=== PATIENT | female | born 1980 | race Caucasian/White ===

== ENCOUNTER 2017-02-16 17:01 | Emergency (ER) | payer OTHER ==
[~2017-02-16] VITALS: Ht 162.6 cm; Wt 85.9 kg
[2017-02-16 17:14] VITALS: TEMP 36.9; Ht 162.6 cm; Wt 85.9 kg
[2017-02-16] MEDS ORDERED: KETOROLAC TROMETHAMINE 60 MG/2 ML VIAL IM STA (17:38)
[2017-02-16] MEDS ORDERED: SENN1TAB65 PO (17:56)
[2017-02-16] MEDS ORDERED: ADVIN50/60 INH (17:56)
[2017-02-16] MEDS ORDERED: AMB/10 PO (17:56)
[2017-02-16] MEDS ORDERED: EPP3/2 IM (17:56)
[2017-02-16] MEDS ORDERED: CLN200 PO (17:56)
[2017-02-16] MEDS ORDERED: HYOS1TAB PO (17:56)
[2017-02-16] MEDS ORDERED: ONDA8TAB12 PO (17:56)
[2017-02-16] MEDS ORDERED: CYCL10TA6 PO (17:56)
[2017-02-16] MEDS ORDERED: VNTHFA/IN INH (17:56)
[2017-02-16] MEDS ORDERED: FLUT50SP22 (17:56)
[2017-02-16] MEDS ORDERED: TRAM-10 PO (17:56)
[2017-02-16] MEDS ORDERED: RABE20TA5 PO (17:56)
[2017-02-16] MEDS ORDERED: GABA-113 PO (17:56)
--- NOTE | 2017-02-16 18:45 | DIAGNOSTIC IMAGING REPORT ---
LUMBAR SPINE 2 OR 3 VIEWS, THORACIC SPINE 3 VIEWS ROUTINE, CERVICAL SPINE 2 OR 3 VIEWS HISTORY: 36 years-old Female lower back pain acute back and neck pain without reported trauma COMPARISON: None available TECHNIQUE: 3 views of the lumbar spine, 3 views of the thoracic spine min 4 views of the cervical spine FINDINGS: CERVICAL: There is minimal anterior endplate wedging of approximately 20% involving the C7 vertebral body without retropulsion. Remaining vertebral bodies are well-maintained in height and alignment is satisfactory. No significant degenerative changes. Soft tissues are unremarkable. THORACIC: No acute fracture, subluxation or significant degenerative changes. Imaged lung lynne and soft tissues are unremarkable. LUMBAR: No acute fracture or subluxation. No compression deformity. Minimal multilevel endplate spurring. No significant intervertebral disc space narrowing. IMPRESSION: 1. Mild anterior endplate wedging of approximately 20% involves the C7 vertebral body without retropulsion suggesting age-indeterminate compression deformity. Correlate with clinical exam and patient history. 2. No acute bony abnormality of the thoracic or lumbar spine. The above report was generated using voice recognition software. It may contain grammatical, syntax or spelling errors. Electronically signed by: Ted Cueva M.D. 02/16/2017 6:43 PM Dictated Date/Time: 02/16/2017 6:37 PM
[2017-02-16] MEDS ORDERED: PRED50TA PO (19:24)
[2017-02-16 19:39] VITALS: BP 130/82; PULSE 100; O2SAT 98
--- NOTE | 2017-02-16 23:25 | EMERGENCY ROOM VISIT NOTE ---
History Report prepared by Hernandez: Ivone Pedro Under the Supervision of: Hanna SowO. First contact with patient: 17:19 Chief Complaint: NECK PAIN Stated Complaint: PAIN IN NECK/RT SHOULDER/LBP/LEG/ARM, LT HAND/ARM History of Present Illness The patient is a 36 year old female who presents to the Emergency Room with complaints of constant right-sided pain for the past 2 weeks. The patient states that she has had pain in her right neck, right shoulder, right back, and down into her right arm and right leg. This has been chronic for years but it has been worse over the past 2 weeks. She states that usually her pain is around a 1/10 in severity, but currently it is a 9/10. She was on prednisone for a week but is not currently taking any steroids. The patient recently moved to the area and has not set up and doctors here. Pt denies numbness, headache, change in vision, fevers, chest pain, shortness of breath, nausea, vomiting, diarrhea, pain with urination, and melena. Source of History: patient Onset: 2 weeks ago Position: other (right-sided) Symptom Intensity: 9/10 Timing: constant Associated Symptoms: + neck pain, + back pain, No fevers, No headache, No nausea, No vomiting, No melena, No diarrhea, No urinary symptoms, No numbness Review of Systems See HPI for pertinent positives & negatives. A total of 10 systems reviewed and were otherwise negative. Past Medical & Surgical Medical Problems: (1) Anxiety (2) Asthma (3) Bipolar disorder (4) Chronic fatigue (5) Depression (6) GERD (gastroesophageal reflux disease) (7) IBS (irritable bowel syndrome) (8) Insomnia (9) PTSD (post-traumatic stress disorder) Family History Diabetes mellitus Heart disease Hypertension Kidney disease Kidney stones Social History Smoking Status: Current Every Day Smoker Smokeless Tobacco Use: No Alcohol Use: occasionally Marital Status: single Housing Status: lives alone Occupation Status: unemployed Current/Historical Medications Scheduled Epinephrine (Epipen), 0.3 MG IM UD Fluticasone Prop/Salmeterol (Advair Diskus 500/50 60 Dose), 1 PUFF INH BID Fluticasone Propionate (Nasal) ([facility] Fluticasone Propriona), 1 SPRAY NA BID Gabapentin (Neurontin), 600 MG PO TID Hyoscyamine Sulfate (Levsin), 0.125 MG PO BID Prednisone (Prednisone), 50 MG PO DAILY Rabeprazole Sodium (Aciphex), 20 MG PO BID Sennosides-Docusate Sodium (Senna Plus), 1 TAB PO BID Sulindac (Sulindac), 200 MG PO BIDM Zolpidem Tartrate (Zolpidem Tartrate), 10 MG PO HS Scheduled PRN Albuterol Hfa (Ventolin Hfa), 2-4 PUFFS INH Q6H PRN for Shortness of Breath Cyclobenzaprine Hcl (Flexeril), 10 MG PO TID PRN for Muscle Spasms Ondansetron Hcl (Zofran), 8 MG PO BID PRN for PRN Tramadol (Ultram), 100 MG PO TID PRN for PRN Allergies Coded Allergies: Ciprofloxacin (Unverified Allergy, Severe, THROAT CLOSES/FACIAL SWELLING, 02/16/17) Metronidazole (Unverified Allergy, Severe, THROAT CLOSING/SWELLING OF FACIAL FEATURES, 02/16/17) Physical Exam Vital Signs Date Time Temp Pulse Resp B/P (MAP) Pulse Ox O2 Delivery O2 Flow Rate FiO2 02/16/17 19:39 100 18 130/82 98 02/16/17 18:07 90 17 106/75 99 02/16/17 17:14 36.9 124 18 121/79 97 Room Air Physical Exam GENERAL: Sitting up in bed, alert, well appearing, well nourished, no distress, non-toxic EYE EXAM: normal conjunctiva OROPHARYNX: no exudate, no erythema, lips, buccal mucosa, and tongue normal and mucous membranes are moist NECK: supple, no nuchal rigidity, no adenopathy, non-tender LUNGS: Clear to auscultation. Normal chest wall mechanics HEART: no murmurs, S1 normal and S2 normal ABDOMEN: abdomen soft, non-tender, normo-active bowel sounds, no masses, no rebound or guarding. BACK: Acute reproducible tenderness in the cervical perispinal region tracking down into lower thoracic region over into right trapezius down to right humerus. SKIN: no rashes and no bruising UPPER EXTREMITIES: upper extremities are grossly normal. Flexion/extension of shoulder/elbow/wrist and grasp 5/5 bilaterally. LOWER EXTREMITIES: No pitting edema. Flexion/extension of hip/knee/ankle/EHL 5/5 , gross sensation intact, patellar and Achilles reflexes intact NEURO EXAM: Normal sensorium, cranial nerves II-XII intact, Medical Decision & Procedures ER Provider Diagnostic Interpretation: Radiology results as stated below per my review and the radiologist's interpretation: LUMBAR SPINE 2 OR 3 VIEWS, THORACIC SPINE 3 VIEWS ROUTINE, CERVICAL SPINE 2 OR 3 VIEWS HISTORY: 36 years-old Female lower back pain acute back and neck pain without reported trauma COMPARISON: None available TECHNIQUE: 3 views of the lumbar spine, 3 views of the thoracic spine min 4 views of the cervical spine FINDINGS: CERVICAL: There is minimal anterior endplate wedging of approximately 20% involving the C7 vertebral body without retropulsion. Remaining vertebral bodies are well-maintained in height and alignment is satisfactory. No significant degenerative changes. Soft tissues are unremarkable. THORACIC: No acute fracture, subluxation or significant degenerative changes. Imaged lung lynne and soft tissues are unremarkable. LUMBAR: No acute fracture or subluxation. No compression deformity. Minimal multilevel endplate spurring. No significant intervertebral disc space narrowing. IMPRESSION: 1. Mild anterior endplate wedging of approximately 20% involves the C7 vertebral body without retropulsion suggesting age-indeterminate compression deformity. Correlate with clinical exam and patient history. 2. No acute bony abnormality of the thoracic or lumbar spine. The above report was generated using voice recognition software. It may contain grammatical, syntax or spelling errors. Electronically signed by: Ted Cueva M.D. 02/16/2017 6:43 PM Dictated Date/Time: 02/16/2017 6:37 PM LUMBAR SPINE 2 OR 3 VIEWS, THORACIC SPINE 3 VIEWS ROUTINE, CERVICAL SPINE 2 OR 3 VIEWS HISTORY: 36 years-old Female lower back pain acute back and neck pain without reported trauma COMPARISON: None available TECHNIQUE: 3 views of the lumbar spine, 3 views of the thoracic spine min 4 views of the cervical spine FINDINGS: CERVICAL: There is minimal anterior endplate wedging of approximately 20% involving the C7 vertebral body without retropulsion. Remaining vertebral bodies are well-maintained in height and alignment is satisfactory. No significant degenerative changes. Soft tissues are unremarkable. THORACIC: No acute fracture, subluxation or significant degenerative changes. Imaged lung lynne and soft tissues are unremarkable. LUMBAR: No acute fracture or subluxation. No compression deformity. Minimal multilevel endplate spurring. No significant intervertebral disc space narrowing. IMPRESSION: 1. Mild anterior endplate wedging of approximately 20% involves the C7 vertebral body without retropulsion suggesting age-indeterminate compression deformity. Correlate with clinical exam and patient history. 2. No acute bony abnormality of the thoracic or lumbar spine. The above report was generated using voice recognition software. It may contain grammatical, syntax or spelling errors. Electronically signed by: Ted Cueva M.D. 02/16/2017 6:43 PM Dictated Date/Time: 02/16/2017 6:37 PM LUMBAR SPINE 2 OR 3 VIEWS, THORACIC SPINE 3 VIEWS ROUTINE, CERVICAL SPINE 2 OR 3 VIEWS HISTORY: 36 years-old Female lower back pain acute back and neck pain without reported trauma COMPARISON: None available TECHNIQUE: 3 views of the lumbar spine, 3 views of the thoracic spine min 4 views of the cervical spine FINDINGS: CERVICAL: There is minimal anterior endplate wedging of approximately 20% involving the C7 vertebral body without retropulsion. Remaining vertebral bodies are well-maintained in height and alignment is satisfactory. No significant degenerative changes. Soft tissues are unremarkable. THORACIC: No acute fracture, subluxation or significant degenerative changes. Imaged lung lynne and soft tissues are unremarkable. LUMBAR: No acute fracture or subluxation. No compression deformity. Minimal multilevel endplate spurring. No significant intervertebral disc space narrowing. IMPRESSION: 1. Mild anterior endplate wedging of approximately 20% involves the C7 vertebral body without retropulsion suggesting age-indeterminate compression deformity. Correlate with clinical exam and patient history. 2. No acute bony abnormality of the thoracic or lumbar spine. The above report was generated using voice recognition software. It may contain grammatical, syntax or spelling errors. Electronically signed by: Ted Cueva M.D. 02/16/2017 6:43 PM Dictated Date/Time: 02/16/2017 6:37 PM Medications Administered Medications (Trade) Dose Ordered Sig/Anselmo Route Start Time Stop Time Status Last Admin Dose Admin Ketorolac Tromethamine (Toradol Inj) 60 mg NOW STAT IM 02/16/17 17:38 02/16/17 17:39 DC 02/16/17 18:03 60 MG Prednisone (PredniSONE TAB) 60 mg NOW STAT PO 02/16/17 19:18 02/16/17 19:19 DC 02/16/17 19:35 60 MG ED Course ED COURSE: Vital signs were reviewed and showed tachycardic. The patients medical record was reviewed The above diagnostic studies were performed and reviewed. ED treatments and interventions as stated above. 1719: The patient was evaluated in room A4B. A complete history and physical examination was performed. 1738: Toradol 60 mg IM 1908: Upon reevaluation, the patient is resting comfortably. I discussed my findings with the patient and she understands and agrees with the treatment plan. Based on the patients age, coexisting illnesses, exam and lab findings the decision to treat as an outpatient was made. The patient remained stable while under my care. The patient appeared well at the time of discharge. 1918: Prednisone 60 mg PO Medical Decision Differential diagnoses includes but is not limited to lumbar radiculopathy, muscle strain, facture, cauda equina, mass, and disc herniation. Patient is a 36-year-old female who presents to ER for right sided pain. She notes this pain has been present for the past 5-7 years. She has an old lower cervical compression fracture. Pain is in her right cervical paraspinal region to the right mid thoracic and a little bit in her lower lumbar rating down to that her right leg. Patient is completely neurologically intact. No focal deficit. X-rays of the cervical thoracic and lumbar regions show no acute pathology. Patient was given steroids. She was given IM Toradol. She was updated bedside. She was discharged to follow-up with PCP. Referral given to pain management. Discussed with Pt concerning signs and symptoms to watch out for. Pt was instructed to follow up with their PCP and discussed with the patient their option to return to the ED at anytime for persistent or worsening symptoms. The appropriate anticipatory guidance and out-patient management, including indications for return to the emergency department, were explained at length to the patient and understood. Medication Reconcilliation Current Medication List: was personally reviewed by me Blood Pressure Screening Patient's blood pressure: Normal blood pressure Impression Primary Impression: Neck pain Additional Impression: Back pain Scribe Attestation The scribe's documentation has been prepared under my direction and personally reviewed by me in its entirety. I confirm that the note above accurately reflects all work, treatment, procedures, and medical decision making performed by me. Departure Information Dispostion Home / Self-Care Prescriptions Prednisone (PREDNISONE) 50 Mg Tab 50 MG PO DAILY for 4 Days, TAB Prov: Ludin Saab, DO 02/16/17 Referrals Kun Pereira M.D. (PCP) Adam Burks M.D. Forms HOME CARE DOCUMENTATION FORM, IMPORTANT VISIT INFORMATION, WORK / SCHOOL INSTRUCTIONS Patient Instructions Back Pain - [facility], My [facility], Neck Cervical Spine Additional Instructions Please follow up with your primary care doctor with in the next 24 hours. Any worsening of your symptoms, please return to the ED immediately. This includes any fevers greater than 100.4, worsening pain, chest pain, shortness breath, persistent nausea, vomiting, unable to eat or drink, numbness or weakness in her legs, unable to walk, or any other concerning signs or symptoms from your standpoint. Please take Motrin or Tylenol as stated for pain. Problem Qualifiers Additional Impression: Back pain Back pain location: back pain in unspecified location Chronicity: unspecified Back pain laterality: unspecified Qualified Codes: M54.9 - Dorsalgia, unspecified
== END 2017-02-16 19:40 | disposition home or self-care (01) ==
LOC: C.EDB 17:04 → C.EDA 19:40
DX: M54.2 Cervicalgia (principal); M54.5 Low back pain; F41.9 Anxiety disorder, unspecified; J45.909 Unspecified asthma, uncomplicated; F31.9 Bipolar disorder, unspecified; F32.9 Major depressive disorder, single episode, unspecified; K21.9 Gastro-esophageal reflux disease without esophagitis; K58.9 Irritable bowel syndrome, unspecified; G47.00 Insomnia, unspecified; F43.10 Post-traumatic stress disorder, unspecified; Z83.3 Family history of diabetes mellitus; Z82.49 Family history of ischemic heart disease and other diseases of the circulatory system; Z84.1 Family history of disorders of kidney and ureter; F17.210 Nicotine dependence, cigarettes, uncomplicated; Z79.899 Other long term (current) drug therapy

== ENCOUNTER 2020-10-16 19:25 | Inpatient (IN) ==
--- NOTE | 2020-10-16 19:39 | Emergency Department Note ---
Impression & Plan Depression, Anxiety ED Provider Note NAME: APRIL MARTE AGE: 40 SEX: F : 1980 ARRIVES VIA: Walk-In INFORMANT: Patient, ED PROVIDER(S): Adin Rajan MD Chief Complaint: Cerner for mental wellness HPI: Patient does present from [place] due to concern for mental wellness issues. Patient does state that she has a lot of current stress with every a recent move. The patient also states that she has had a lot of traumatic experiences and does suffer chronically with thinking about and dying. The patient states that she was referred here today as she reportedly told some staff that she had held a knife to her wrist 5 to 6 days ago. The patient states that she does not have a current plan. Patient denies any HI or visual hallucinations but does have auditory hallucinations. They are not command hallucinations. Patient denies any fevers chills chest pains or shortness of breath. The patient states that her sleep and appetite have been okay. The patient is currently employed. The patient does live alone. The patient relates that she recently stopped seeing her therapist this is been ongoing for approximately 6 weeks. Patient does states she is compliant with medications. ROS: See HPI for pertinent positives and negatives. A total of 10 systems were reviewed and otherwise negative. Past medical history: See below Surgical history: See below Social history: See below Physical Exam: GENERAL: Wearing a mask. NAD, non-toxic. EYE EXAM: Normal conjunctiva. PERRL, no anisocoria and EOM's grossly intact w/o pain. NECK: Supple, no nuchal rigidity, no adenopathy, non-tender. No signs of meningismus. LUNGS: Clear to auscultation. Normal chest wall mechanics. HEART: NSR, no MRG. ABDOMEN: Abdomen soft, non-tender, normo-active bowel sounds, no masses, no rebo und or guarding. BACK: No CVA TTP. SKIN: No rashes and no bruising. UPPER EXTREMITIES: Upper extremities are grossly normal. LOWER EXTREMITIES: Grossly normal, no edema. NEURO EXAM: A&O x3, cranial nerves II-XII grossly intact, normal speech, moves all 4 extremities on command w/o issue. Psych: Denies SI, HI, positive AH, negative VH. Differential diagnoses: Mood disorder, infection, hypoglycemia, electrolyte abnormalities, cardiac sources, intracerebral event, toxicologic, trauma, neurologic, as well as other pathologies. Course: Patient was seen and evaluated the bedside. Full history physical exam was performed. MDM: Patient was seen due to concern for mental wellness. Blood work was obtained and the patient was deemed medically cleared. The field case manager was informed. I did sign out the patient to Dr. Weiner pending the case management assistant evaluation and disposition. Patient's home medications were ordered Past Med/Surg History Medical History Anemia HX OF Anxiety Arthritis ASCUS with positive high risk HPV cervical Asthma USED RESCUE INHALER "NOT FOR A WHILE" Bipolar disorder Borderline personality disorder Breast pain, right Cardiac murmur A BABY Depression Fibromyalgia GERD (gastroesophageal reflux disease) History of IBS Lipoma of left shoulder Migraine hx Post traumatic stress disorder Rheumatoid arthritis Surgical History H/O LEEP H/O right breast biopsy (04/10/20) Right Breast Biopsy with Needle Localization Using Kristine Deicer Repairer Marker Dr. Enamorado 04/10/2020 History of colonoscopy History of colposcopy History of esophagogastroduodenoscopy (EGD) History of shoulder surgery RT History of tooth extraction Family History Mother Family history of diabetes mellitus Anxiety Allergies Hypertension Brother Family history of diabetes mellitus Asthma Grandfather (Maternal) Family history of diabetes mellitus Father Myocardial infarction Hypertension Other No family history of adverse response to anesthesia Denies family history of Ovarian cancer Clotting disorder Breast cancer Colorectal cancer Social History Smoking Status: Current every day smoker Tobacco Type: Cigarettes Age Started Using Tobacco: 10; Years Smoked: 29; Cigarettes Per Day: 10 CIG DAILY; Second Hand Exposure: No; Hx Alcohol Use: Yes Alcohol type: beer, wine and hard liquor Hx Substance Use: Yes Preferred Language: Macedonian Communication Ability: Effective [employer] Required: No Beliefs That Will Affect Care: None marital status: Single Current Living Situation: Alone current occupational status: employed 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 How many Children do You have: 0 Feels Safe at Home: Yes Assistive Devices: Glasses Allergies Allergies Allergy/AdvReac Type Severity Reaction Status Date / Time bee venom protein (honey bee) Allergy Severe THROAT Verified 10/17/20 00:30 CLOSING ciprofloxacin Allergy Severe THROAT Verified 10/17/20 00:30 CLOSES/FACIAL SWELLING cyproheptadine Allergy Unknown Unknown Verified 10/17/20 00:30 Home Meds Home Medications Medication Instructions Recorded Confirmed Savella 100 mg PO BID 07/16/18 10/17/20 albuterol sulfate 2 inh INHALATION Q6H PRN 07/16/18 10/17/20 celecoxib [Celebrex] 200 mg PO QAM 07/16/18 10/17/20 epinephrine 0.3 mg IM Q3H PRN 07/16/18 10/17/20 fluticasone propionate [Flonase 1 spray INTRANASAL BID 07/16/18 10/17/20 Allergy Relief] methocarbamol 500 mg tablet 500 mg PO TID 05/24/19 10/17/20 diclofenac sodium 1 % topical gel 2 gm TOP QID PRN 05/29/19 10/17/20 meclizine 25 mg tablet 25 mg PO BID PRN 09/26/19 10/17/20 clobetasol 1 applic TOPICAL DIRECTED PRN 10/14/19 10/17/20 buspirone 10 mg tablet 10 mg PO TID 12/24/19 10/17/20 clonidine HCl 0.1 mg tablet 0.1 mg PO BID 12/24/19 10/17/20 ascorbate calcium (vitamin C) 500 500 mg PO BID 03/05/20 10/17/20 mg tablet elderberry fruit 1 dose PO QAM 03/05/20 10/17/20 multivitamin 1 tab PO QAM 03/05/20 10/17/20 pregabalin 150 mg capsule 150 mg PO TID cap 03/05/20 10/17/20 propranolol 40 mg tablet 40 mg PO BID 03/16/20 10/17/20 ibuprofen 400 mg PO BID PRN 03/26/20 10/17/20 melatonin 3 - 10 mg PO HS PRN 03/26/20 10/17/20 cetirizine [Zyrtec] 10 mg PO QAM 10/17/20 10/17/20 famotidine 20 mg PO HS 10/17/20 10/17/20 lansoprazole 30 mg PO QAM 06/26/21 06/26/21 lorazepam 0.5 mg PO BID 10/17/20 10/17/20 sucralfate 1 g PO BID 10/17/20 10/17/20 Previous Rx's Medication Instructions Recorded tramadol 50 mg tablet 50 mg PO Q8H PRN #30 tab 04/27/20 rizatriptan 10 mg tablet 10 mg PO UD PRN 30 Days #9 tab 09/17/20 topiramate 25 mg tablet 25 mg PO BID #60 tab 10/05/20 Results & Data (ED) Vital Signs Vital Signs - 24 hr 10/16/20 19:26 10/16/20 21:23 Temperature 36.4 C L Temperature Source Temporal Artery Scan Pulse Rate 87 Pulse Rate [Right Radial] 88 Pulse Rhythm [Right Radial] Regular Respiratory Rate 16 20 Blood Pressure 152/94 H Blood Pressure [Right Arm] 128/85 Blood Pressure Mean 113 Blood Pressure Mean [Right Arm] 99 Pulse Oximetry 100 99 Oxygen Delivery Method Room Air Room Air Sepsis Recent Fever Within 48 Hours No Sepsis New/Unexplained Change in Mental Status No Sepsis Action Taken by Nursing No Action Required Home Medications Current Medication List: was personally reviewed by me Laboratory Data Attestation: I reviewed the patient's lab results. Result diagrams: 10/16/20 20:31 10/16/20 20:31 Lab Results 10/16/20 10/16/20 10/16/20 Range/Units 20:00 20:00 20:31 WBC 7.15 (4.8-10.8) K/uL RBC 4.59 (4.2-5.4) M/uL Hgb 12.3 (12.0-16.0) g/dL Hct 38.3 (37-47) % MCV 83.4 (80-100) fL MCH 26.8 (25-34) pg MCHC 32.1 (32-36) g/dL RDW Std Deviation 42.8 (36.4-46.3) fL RDW Coeff of Ivy 14.0 (11.5-14.5) % Plt Count 434 H (130-400) K/uL MPV 9.7 (7.4-10.4) fL Immature Gran % (Auto) 0.1 % Neut % (Auto) 46.6 % Lymph % (Auto) 43.4 % [place]fe % (Auto) 7.1 % Eos % (Auto) 2.2 % Baso % (Auto) 0.6 % Neut # (Auto) 3.33 (1.4-6.5) K/uL Lymph # (Auto) 3.10 (1.2-3.4) K/uL [place]fe # (Auto) 0.51 (0.11-0.59) K/uL Eos # (Auto) 0.16 (0-0.5) K/uL Baso # (Auto) 0.04 (0-0.2) K/uL Immature Gran # (Auto) 0.01 (0.00-0.02) K/uL Sodium (136-145) mmol/L Potassium (3.5-5.1) mmol/L Chloride (98-107) mmol/L Carbon Dioxide (21-32) mmol/L Anion Gap (3-11) BUN (7-18) mg/dl Creatinine (0.6-1.2) mg/dl Est Cr Clr Drug Dosing ml/min Est GFR ( Amer) ml/min Est GFR (Non-Af Amer) ml/min BUN/Creatinine Ratio (10-20) Glucose (70-99) mg/dl Calcium (8.5-10.1) mg/dl Total Bilirubin (0.2-1) mg/dl AST (15-37) U/L ALT (12-78) U/L Alkaline Phosphatase (45-117) U/L Total Protein (6.4-8.2) gm/dl Albumin (3.4-5.0) gm/dl Globulin (2.5-4.0) gm/dl Albumin/Globulin Ratio (0.9-2) TSH (0.300-4.500) uIu/ml Urine Color Yellow Urine Appearance Clear (Clear) Urine pH 7.0 (4.5-7.5) Ur Specific Alex 1.009 (1.000-1.030) Urine Protein Negative (Negative) Urine Glucose (UA) Negative (Negative) Urine Ketones Negative (Negative) Urine Blood Negative (Negative) Urine Nitrite Negative (Negative) Urine Bilirubin Negative (Negative) Urine Urobilinogen Negative (Negative) Ur Leukocyte Esterase 1+ H (Negative) Urine WBC (Auto) 5-10 H (0-5) /hpf Urine RBC (Auto) 0-4 (0-4) /hpf U Hyaline Cast (Auto) 1-5 (0-5) /lpf U Epithel Cells (Auto) >30 H (0-5) /lpf Urine Bacteria (Auto) Negative (Negative) Salicylates (2.8-20) mg/dl Urine Opiates Screen Neg (Neg) Ur Methadone, Qual Neg (Neg) Acetaminophen (10-30) ug/ml Urine Barbiturates Neg (Neg) Ur Phencyclidine (PCP) Neg (Neg) U Amphetamin/Meth Scrn Neg (Neg) MDMA (Ecstasy) Screen Neg (Neg) U Benzodiazepines Scrn Neg (Neg) Ur Cocaine Metabolite Neg (Neg) U Marijuana (THC) Screen Neg (Neg) Ethyl Alcohol mg/dL (0-3) mg/dl 10/16/20 10/16/20 10/16/20 Range/Units 20:31 20:31 20:31 WBC (4.8-10.8) K/uL RBC (4.2-5.4) M/uL Hgb (12.0-16.0) g/dL Hct (37-47) % MCV (80-100) fL MCH (25-34) pg MCHC (32-36) g/dL RDW Std Deviation (36.4-46.3) fL RDW Coeff of Ivy (11.5-14.5) % Plt Count (130-400) K/uL MPV (7.4-10.4) fL Immature Gran % (Auto) % Neut % (Auto) % Lymph % (Auto) % [place]fe % (Auto) % Eos % (Auto) % Baso % (Auto) % Neut # (Auto) (1.4-6.5) K/uL Lymph # (Auto) (1.2-3.4) K/uL [place]fe # (Auto) (0.11-0.59) K/uL Eos # (Auto) (0-0.5) K/uL Baso # (Auto) (0-0.2) K/uL Immature Gran # (Auto) (0.00-0.02) K/uL Sodium 139 (136-145) mmol/L Potassium 3.6 (3.5-5.1) mmol/L Chloride 108 H (98-107) mmol/L Carbon Dioxide 27 (21-32) mmol/L Anion Gap 4.0 (3-11) BUN 12 (7-18) mg/dl Creatinine 0.68 (0.6-1.2) mg/dl Est Cr Clr Drug Dosing 118.2 ml/min Est GFR ( Amer) 125.9 ml/min Est GFR (Non-Af Amer) 108.6 ml/min BUN/Creatinine Ratio 16.8 (10-20) Glucose 79 (70-99) mg/dl Calcium 8.6 (8.5-10.1) mg/dl Total Bilirubin 0.6 (0.2-1) mg/dl AST 11 L (15-37) U/L ALT 18 (12-78) U/L Alkaline Phosphatase 73 (45-117) U/L Total Protein 7.4 (6.4-8.2) gm/dl Albumin 3.7 (3.4-5.0) gm/dl Globulin 3.7 (2.5-4.0) gm/dl Albumin/Globulin Ratio 1.0 (0.9-2) TSH 1.270 (0.300-4.500) uIu/ml Urine Color Urine Appearance (Clear) Urine pH (4.5-7.5) Ur Specific Alex (1.000-1.030) Urine Protein (Negative) Urine Glucose (UA) (Negative) Urine Ketones (Negative) Urine Blood (Negative) Urine Nitrite (Negative) Urine Bilirubin (Negative) Urine Urobilinogen (Negative) Ur Leukocyte Esterase (Negative) Urine WBC (Auto) (0-5) /hpf Urine RBC (Auto) (0-4) /hpf U Hyaline Cast (Auto) (0-5) /lpf U Epithel Cells (Auto) (0-5) /lpf Urine Bacteria (Auto) (Negative) Salicylates 2.1 L (2.8-20) mg/dl Urine Opiates Screen (Neg) Ur Methadone, Qual (Neg) Acetaminophen < 2 L (10-30) ug/ml Urine Barbiturates (Neg) Ur Phencyclidine (PCP) (Neg) U Amphetamin/Meth Scrn (Neg) MDMA (Ecstasy) Screen (Neg) U Benzodiazepines Scrn (Neg) Ur Cocaine Metabolite (Neg) U Marijuana (THC) Screen (Neg) Ethyl Alcohol mg/dL < 3.0 (0-3) mg/dl Administered Medications Discontinued Medications Nicotine (Nicotine 21 Mg/24 Hr Tdsy) 21 mg TD NOW STA Stop: 10/16/20 23:52 Last Admin: 10/17/20 00:19 Dose: Not Given Documented by: [id number] Tramadol HCl (Tramadol Hcl 50 Mg Tablet) 50 mg PO NOW STA Stop: 10/16/20 22:51 Last Admin: 10/16/20 22:56 Dose: 50 mg Documented by: [id number] Discharge Plan Visit Data Chief Complaint: Mental Health Evaluation Stated Complaint: MENTAL HEALTH EVAL ED Provider: Adin Rajan Discharge Problem: Depression, Anxiety Forms Stand Alone Forms: [facility], Suicide Prevention Resources Prescriptions Prescriptions: No Action rizatriptan [Maxalt] 10 mg tablet 10 mg PO UD PRN (Reason: migraine headache) 30 Days Qty: 9 RF: 0 topiramate 25 mg tablet 25 mg PO BID Qty: 60 RF: 0 ascorbate calcium (vitamin C) 500 mg tablet 500 mg PO BID RF: 0 multivitamin [Multiple Vitamins] Tablet 1 tab PO QAM RF: 0 elderberry fruit 1 dose PO QAM RF: 0 tramadol 50 mg tablet 50 mg PO Q8H PRN (Reason: pain) Qty: 30 RF: 0 propranolol 40 mg tablet 40 mg PO BID RF: 0 pregabalin [Lyrica] 150 mg capsule 150 mg PO TID RF: 0 meclizine 25 mg tablet 25 mg PO BID PRN (Reason: Dizziness) RF: 0 methocarbamol 500 mg tablet 500 mg PO TID RF: 0 diclofenac sodium 1 % gel 2 gm TOP QID PRN (Reason: Pain) RF: 0 buspirone 10 mg tablet 10 mg PO TID RF: 0 clonidine HCl 0.1 mg tablet 0.1 mg PO BID RF: 0 celecoxib [Celebrex] 200 mg Capsule 200 mg PO QAM RF: 0 epinephrine 0.3 mg/0.3 mL Auto-Injector 0.3 mg IM Q3H PRN (Reason: Allergy Symptoms) RF: 0 fluticasone propionate [Flonase Allergy Relief] 50 mcg/actuation [place],Suspension 1 spray INTRANASAL BID RF: 0 Savella 100 mg Tablet 100 mg PO BID RF: 0 albuterol sulfate 90 mcg/actuation Aerosol Powdr Breath Activated 2 inh INHALATION Q6H PRN (Reason: SHORT OF BREATH) RF: 0 clobetasol 0.05 % Gel 1 applic TOPICAL DIRECTED PRN (Reason: Itching) RF: 0 ibuprofen 200 mg Tablet 400 mg PO BID PRN (Reason: Pain) RF: 0 melatonin 5 mg Tablet 3 - 10 mg PO HS PRN (Reason: Sleep) RF: 0 famotidine 20 mg Tablet 20 mg PO HS RF: 0 lorazepam 0.5 mg Tablet 0.5 mg PO BID RF: 0 lansoprazole 30 mg Capsule,Delayed Release(Dr/Ec) 30 mg PO QAM RF: 0 sucralfate 1 gram tablet 1 g PO BID RF: 0 cetirizine [Zyrtec] 10 mg Tablet 10 mg PO QAM RF: 0 Discharge Problem: Depression Qualifiers: Depression Type: unspecified Qualified Code(s): F32.9 - Major depressive disorder, single episode, unspecified
[2020-10-16 20:49] LABS: Appearance Urine Clear (Clear); Bacteria Urine Automated Negative (Negative); Bilirubin Urine Negative (Negative); Blood Urine Negative (Negative); Color Urine Yellow; Epithelial Cell Urine Auto >30 /lpf (0-5); Glucose Urine UA Negative (Negative); Ketones Urine Negative (Negative); Leukocyte Esterase Urine 1+ (Negative); Nitrite Urine Negative (Negative); Protein Urine Negative (Negative); RBC Urine Automated 0-4 /hpf (0-4); Specific Gravity Urine 1.009 (1.000-1.030); Urobilinogen Urine Negative (Negative)
[2020-10-16 20:53] LABS: Basophils # (auto) 0.04 K/uL (0-0.2); Basophils % (auto) 0.6 %; Eosinophils # (auto) 0.16 K/uL (0-0.5); Eosinophils % (auto) 2.2 %; Hematocrit (blood only) 38.3 % (37-47); Hemoglobin 12.3 g/dL (12.0-16.0); Immature Granulocytes # (auto) 0.01 K/uL (0.00-0.02); Immature Granulocytes % (auto) 0.1 %; Lymphocytes % (auto) 43.4 %; Mean Corpuscular Hemoglobin 26.8 pg (25-34); Mean Corpuscular Hgb Conc 32.1 g/dL (32-36); Mean Corpuscular Volume 83.4 fL (80-100); Mean Platelet Volume 9.7 fL (7.4-10.4); Monocytes # (auto) 0.51 K/uL (0.11-0.59); Monocytes % (auto) 7.1 %; Neutrophils # (auto) 3.33 K/uL (1.4-6.5); Neutrophils % (auto) 46.6 %; Platelet Count 434 K/uL (130-400); RDW Standard Deviation 42.8 fL (36.4-46.3); Red Blood Count 4.59 M/uL (4.2-5.4); White Blood Count 7.15 K/uL (4.8-10.8)
[2020-10-16 21:05] LABS: Amphetamines+Metham, Urine Neg (Neg); Barbiturates, Urine Neg (Neg); Benzodiazepine, Urine Neg (Neg); Cocaine, Urine Neg (Neg); MDMA (Ecstacy), Urine Neg (Neg); Methadone, Urine Neg (Neg); Opiate, Urine Neg (Neg); Phencyclidine, Urine Neg (Neg)
[2020-10-16 21:12] LABS: Albumin Level 3.7 gm/dl (3.4-5.0); BUN Creatinine Ratio 16.8 (10-20); Calcium 8.6 mg/dl (8.5-10.1); Creatinine Clr Calc Pharmacy 118.2 ml/min; Est GFR (African American) 125.9 ml/min; Est GFR (Non-African American) 108.6 ml/min; Potassium 3.6 mmol/L (3.5-5.1)
[2020-10-16 21:14] LABS: Acetaminophen < 2 ug/ml (10-30); Salicylate 2.1 mg/dl (2.8-20)
[2020-10-16 21:22] LABS: Bilirubin,Total 0.6 mg/dl (0.2-1); Globulin 3.7 gm/dl (2.5-4.0); Thyroid Stimulating Hormone 1.27 uIu/ml (0.300-4.500); Total Protein 7.4 gm/dl (6.4-8.2)
[2020-10-16] MEDS ORDERED: traMADol HCL 50 MG TABLET PO STA (22:50)
[2020-10-16] MEDS ORDERED: NICOTINE 21 MG/24 HR TDSY TD STA (23:51)
[2020-10-17] MEDS ORDERED: traMADol HCL 50 MG TABLET PO PRN ×2 (00:19→12:21)
[2020-10-17] MEDS ORDERED: NON-FORMULARY MEDICATION (Melatonin 5 mg Tablet) PO PRN (00:19)
[2020-10-17] MEDS ORDERED: RIZATRIPTAN BENZOATE 10 MG TAB PO PRN ×2 (00:19→12:17)
[2020-10-17] MEDS ORDERED: NON-FORMULARY MEDICATION (Lansoprazole 30 mg capsule,delayed release(DR/EC)) PO SCH (00:30)
[2020-10-17] MEDS ORDERED: FAMOTIDINE 20 MG TAB PO SCH ×2 (00:30→21:00)
[2020-10-17] MEDS: cloNIDine HCL 0.1 MG TAB PO SCH ×3 (01:31→20:27)
[2020-10-17] MEDS: PANTOprazole 40 MG TAB PO SCH ×3 (01:31→20:28)
[2020-10-17] MEDS: TOPIRAMATE 25 MG TAB PO SCH ×3 (01:32→20:29)
[2020-10-17] MEDS: busPIRone 5 MG TAB PO SCH ×2 (01:32→09:01)
[2020-10-17] MEDS: PROPRANOLOL HCL 20 MG TAB PO SCH ×3 (01:32→20:28)
[2020-10-17] MEDS: METHOCARBAMOL 500 MG TABLET PO SCH ×4 (01:33→20:28)
[2020-10-17] MEDS ORDERED: LORazepam 1 MG TAB SL STA (05:17)
[2020-10-17] MEDS ORDERED: NICOTINE POLACRILEX 2 MG GUM MT PRN ×2 (05:19→12:29)
--- NOTE | 2020-10-17 07:27 | Emergency Department Note ---
ED Visit Note Patient signed out to me at change of shift from Dr. Rajan. Patient awaiting mental health evaluation at that time. Patient seen and initially in agreement with voluntary admission for inpatient mental health treatment. After being told she could not smoke on [address] she became combative and refused to come in voluntarily. Case management filled out a 302 petition which was upheld. Patient transferred to [address] . : Depression Qualifiers: Depression Type: unspecified Qualified Code(s): F32.9 - Major depressive disorder, single episode, unspecified
[2020-10-17] MEDS: MILNACIPRAN 100 MG PO SCH ×2 (07:43→09:45)
[2020-10-17] MEDS ORDERED: PREGABALIN 150 MG CAP PO SCH (09:00)
[2020-10-17] MEDS ORDERED: LORATADINE 10 MG TAB PO SCH (09:00)
[2020-10-17] MEDS ORDERED: LISDEXAMFETAMINE 40 MG PO SCH (09:00)
[2020-10-17] MEDS ORDERED: MELATONIN 3 MG TAB PO STA (11:29)
[2020-10-17] MEDS ORDERED: MELATONIN 3 MG TAB PO PRN (12:18)
[2020-10-17] MEDS ORDERED: DICLOFENAC SOD 1% GEL 100 GM TUBE EXT PRN (12:24)
[2020-10-17] MEDS ORDERED: LORazepam 1 MG TAB PO PRN (12:38)
[2020-10-17] MEDS ORDERED: ALBUTEROL HFA 8 GM INHALER INH PRN (12:41)
[2020-10-17] MEDS ORDERED: MECLIZINE HCL 25 MG TAB PO PRN (12:44)
[2020-10-17] MEDS ORDERED: EPINEPHrine INJ 1 MG/ML AMP IM PRN (12:47)
[2020-10-17] MEDS ORDERED: ALUMINUM/MAGNESIUM SUSP 30 ML UDC PO PRN (13:22)
[2020-10-17] MEDS ORDERED: ACETAMINOPHEN 325 MG TAB PO PRN (13:22)
[2020-10-17] MEDS ORDERED: MAGNESIUM HYDROXIDE SUSP 30 ML UDC PO PRN (13:22)
[2020-10-17] MEDS ORDERED: BISMUTH SUBSALICYLATE LIQD 236 ML PO PRN (13:22)
[2020-10-17] MEDS ORDERED: SODIUM CHLORIDE 0.65% NA SOLN 45 ML (OCEAN) PRN (13:22)
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
[2020-10-17] MEDS ORDERED: HALOPERIDOL LACTATE 5 MG/ML 1 ML VIAL IM PRN (14:04)
[2020-10-17] MEDS ORDERED: BENZTROPINE MESYLATE 1 MG TAB PO PRN (14:04)
[2020-10-17] MEDS ORDERED: haloperidoL 5 MG TAB PO PRN (14:04)
[2020-10-17] MEDS ORDERED: LORazepam 2 MG/ML VIAL (IM USE) IM PRN (14:04)
[2020-10-17] MEDS: PREGABALIN 150 MG CAP PO SCH ×2 (14:14→20:28)
[2020-10-17] MEDS: ASCORBIC ACID 500 MG TAB PO SCH (20:26)
[2020-10-17] MEDS: FLUTICASONE PROPIONATE NA SPR 16 GM BTL SCH (20:27)
[2020-10-17] MEDS: SUCRALFATE 1 GM TAB PO SCH (20:29)
[2020-10-17] MEDS: FAMOTIDINE 20 MG TAB PO SCH (20:29)
[2020-10-18] MEDS ORDERED: LORATADINE 10 MG TAB PO SCH (09:00)
[2020-10-18] MEDS: CeleBREX 200 MG CAP PO SCH (10:06)
[2020-10-18] MEDS: ASCORBIC ACID 500 MG TAB PO SCH ×2 (10:06→20:49)
[2020-10-18] MEDS: CETIRIZINE HCL 10 MG TABLET PO SCH (10:06)
[2020-10-18] MEDS: cloNIDine HCL 0.1 MG TAB PO SCH ×2 (10:07→20:49)
[2020-10-18] MEDS: FLUTICASONE PROPIONATE NA SPR 16 GM BTL SCH ×2 (10:07→20:49)
[2020-10-18] MEDS: METHOCARBAMOL 500 MG TABLET PO SCH ×3 (10:08→20:50)
[2020-10-18] MEDS: PROPRANOLOL HCL 20 MG TAB PO SCH ×2 (10:08→20:51)
[2020-10-18] MEDS: SUCRALFATE 1 GM TAB PO SCH ×2 (10:09→20:51)
[2020-10-18] MEDS: PREGABALIN 150 MG CAP PO SCH ×3 (10:09→20:50)
[2020-10-18] MEDS: MULTIVITAMIN TAB PO SCH (10:09)
[2020-10-18] MEDS: NICOTINE 21 MG/24 HR TDSY TD SCH (10:09)
[2020-10-18] MEDS: PANTOprazole 40 MG TAB PO SCH ×2 (10:09→20:50)
[2020-10-18] MEDS: TOPIRAMATE 25 MG TAB PO SCH ×2 (10:10→20:51)
--- NOTE | 2020-10-18 12:24 | Psychiatric Progress Note ---
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 She is quite irritable about her situation but understands that she will be monitored at this time as unclear how much of current presentation is personality disorder vs irritable efrain, etc and she has multiple risk factors for suicide and lives alone. 10/18/20--irritable but improving, no evidence of efrain or psychosis. (1) Unspecified mood [affective] disorder: 10/18/20: continue to work on collateral from friends and safety plan, needs outpatient therapist. Patient encouraged to use DBT skills and does describe acceptance of her life circumstances and understanding of how to build a life worth living. Reviewed she desires prns to remain same. 10/17/20: The patient was admitted to the [facility] ([facility] mental health unit) on q15 min checks (behavioral with suicide precautions) for safety. The patient will participate in group, recreational, and milieu therapies and will be offered additional individual and family sessions as clinically appropriate. She remains angry about her hospitalization, has responded poorly to medication trials in the past and is only willing to continue prn Ativan. 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 Will obtain additional history re: PTSD and bipolar hx when more cooperative. (2) Fibromyalgia: continue home regimen, consider hospitalist consult for pain control if worsens/acute issue. 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 Review of Systems Sleep Information Total Hours of Sleep: 6.25 Meal Information Percent Meal Consumed - Breakfast: 0 Percent Meal Consumed - Lunch: 10 Percent Meal Consumed - Dinner: 100 Subjective Subjective Patient was seen & assessed and interval progress reviewed with nursing and social work. Periods of anger continued in pm, focussed on smoking but refusing nicotine replacement last night. Received prn Haldol and Ativan. Her perception of sleep and staffs vary a bit. She is less pain focussed today. She is demanding with regards to discharge yet also filling out menu. States she is a alone in the world then also lists several friend contacts. She would not engage in discussion around discharge planning until about 40 min into her session with me. She was able to describe DBT skills she developed during an extended DBT based iop program when living in [place] that took place over the course of two years. States that she is accepting of the duality of her life, that "the pain could be over" but also fears . Today was able to state that would not kill herself as she maintains a belief that she will do something great and that it just hasn't happened yet. She referenced a 3 page list of tasks and goals that she has for herself at home. 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 By the end she was agreeable to a phone session with one of 2 lifelong friends and sw was notified. Physical Exam Psychiatric Orientation: alert Apperance: appropriately groomed Eye Contact: + fair eye contact Motor Behavior: steady gait and station Speech: normal rate/rhythm/volume of speech (fast at times though but not pressured.) Affect: euthymic affect Mood: + irritable mood Thought Process: + circumstantial thought process Thought Content: + preoccupation; no delusions Suicidal Thoughts: denies suicidal thoughts Homicidal Thoughts: denies homicidal thoughts Hallucinations: no auditory hallucinations and no visual hallucinations Cognition: attention grossly intact Estimated Intelligence: consistent with education level Insight: + limited insight Vital Signs (Past 24 Hours) Last Vital Signs Temp 36.7 C 10/18/20 06:33 Pulse 80 10/18/20 10:17 Resp 16 10/18/20 06:33 BP 131/83 10/18/20 10:17 Pulse Ox 100 10/18/20 06:33 Results & Data ([facility]) Current Inpatient Medications Current Inpatient Medications: Current Inpatient Medications Acetaminophen (Acetaminophen 325 Mg Tab) 650 mg PO Q4H PRN PRN Reason: Headache or Minor Fever Stop: 11/16/20 13:21 Al Hydrox/Mg Hydrox/Simethicone (Aluminum/Magnesium Susp 30 Ml Udc) 30 ml PO Q4H PRN PRN Reason: GI Upset Stop: 11/16/20 13:21 Albuterol (Albuterol Hfa 8 Gm Inhaler) 2 puffs INH Q6H PRN PRN Reason: SHORT OF BREATH Stop: 11/16/20 12:40 Ascorbic Acid (Ascorbic Acid 500 Mg Tab) 500 mg PO BID [facility] Stop: 11/16/20 20:59 Last Admin: 10/18/20 10:06 Dose: 500 mg Documented by: Benztropine Mesylate (Benztropine Mesylate 1 Mg Tab) 1 mg PO Q6 PRN PRN Reason: Muscle Spasm Stop: 11/16/20 14:03 Bismuth Subsalicylate (Bismuth Subsalicylate Liqd 236 Ml) 15 ml PO PRN PRN PRN Reason: Loose Stool Stop: 11/16/20 13:21 Celecoxib (Celebrex 200 Mg Cap) 200 mg PO QAM [facility] Stop: 11/17/20 08:59 Last Admin: 10/18/20 10:06 Dose: 200 mg Documented by: Cetirizine HCl (Cetirizine Hcl 10 Mg Tablet) 10 mg PO QAM [facility] Stop: 11/17/20 08:59 Last Admin: 10/18/20 10:06 Dose: 10 mg Documented by: Clonidine HCl (Clonidine Hcl 0.1 Mg Tab) 0.1 mg PO BID [facility] Stop: 11/16/20 20:59 Last Admin: 10/18/20 10:07 Dose: 0.1 mg Documented by: Diclofenac Sodium (Diclofenac Sod 1% Gel 100 Gm Tube) 2 gm EXT QID PRN PRN Reason: Pain Stop: 11/16/20 12:23 Epinephrine HCl (Epinephrine Inj 1 Mg/Ml Amp) 0.3 mg IM Q3H PRN PRN Reason: Allergy Symptoms Stop: 11/16/20 12:46 Famotidine (Famotidine 20 Mg Tab) 20 mg PO HS [facility] Stop: 11/16/20 21:59 Last Admin: 10/17/20 20:29 Dose: 20 mg Documented by: Fluticasone Propionate (Fluticasone Propionate Na Spr 16 Gm Btl) 1 sprays NA BID [facility] Stop: 11/16/20 20:59 Last Admin: 10/18/20 10:07 Dose: 1 sprays Documented by: Haloperidol (Haloperidol 5 Mg Tab) 5 mg PO Q4 PRN PRN Reason: Agitation Stop: 11/16/20 14:03 Last Admin: 10/17/20 22:42 Dose: 5 mg Documented by: Haloperidol Lactate (Haloperidol Lactate 5 Mg/Ml 1 Ml Vial) 5 mg IM Q6 PRN PRN Reason: Agitation Stop: 11/16/20 14:03 Lorazepam (Lorazepam 0.5 Mg Tab) 0.5 mg PO BID PRN PRN Reason: Anxiety Stop: 11/16/20 20:59 Lorazepam (Lorazepam 2 Mg/Ml Vial (Im Use)) 2 mg IM Q6 PRN PRN Reason: Agitation Stop: 11/16/20 14:03 Magnesium Hydroxide (Magnesium Hydroxide Susp 30 Ml Udc) 30 ml PO DAILY PRN PRN Reason: Constipation Stop: 11/16/20 13:21 Meclizine HCl (Meclizine Hcl 25 Mg Tab) 25 mg PO BID PRN PRN Reason: Dizziness Stop: 11/16/20 12:43 Melatonin (Melatonin 3 Mg Tab) 3 mg PO HS PRN PRN Reason: Sleep Stop: 11/16/20 12:17 Methocarbamol (Methocarbamol 500 Mg Tablet) 500 mg PO TID [facility] Stop: 11/16/20 13:59 Last Admin: 10/18/20 10:08 Dose: 500 mg Documented by: Miscellaneous (Savella ~ Order Awaiting Action) 1 ea N/A QS [facility] Stop: 11/16/20 15:59 Last Admin: 10/18/20 08:04 Dose: Not Given Documented by: Miscellaneous (Remove Nicoderm Patch) 1 ea N/A DAILY@[id number] [facility] Stop: 11/17/20 08:58 Last Admin: 10/18/20 11:01 Dose: Not Given Documented by: Multivitamins (Multivitamin Tab) 1 tab PO QAM [facility] Stop: 11/17/20 08:59 Last Admin: 10/18/20 10:09 Dose: 1 tab Documented by: Nicotine (Nicotine 21 Mg/24 Hr Tdsy) 21 mg TD QAM [facility] Stop: 11/17/20 08:59 Last Admin: 10/18/20 10:09 Dose: 21 mg Documented by: Nicotine Polacrilex (Nicotine Polacrilex 2 Mg Gum) 1 piece MT PRN PRN PRN Reason: nicotine Stop: 11/16/20 12:28 Pantoprazole Sodium (Pantoprazole 40 Mg Tab) 40 mg PO BID [facility] Stop: 11/16/20 20:59 Last Admin: 10/18/20 10:09 Dose: 40 mg Documented by: Pregabalin (Pregabalin 150 Mg Cap) 150 mg PO TID [facility] Stop: 11/16/20 13:59 Last Admin: 10/18/20 10:09 Dose: 150 mg Documented by: Propranolol HCl (Propranolol Hcl 20 Mg Tab) 40 mg PO BID [facility] Stop: 11/16/20 20:59 Last Admin: 10/18/20 10:08 Dose: 40 mg Documented by: Rizatriptan Benzoate (Rizatriptan Benzoate 10 Mg Tab) 10 mg PO 2XWK PRN PRN Reason: Headache Stop: 11/16/20 12:16 Last Admin: 10/17/20 12:46 Dose: 10 mg Documented by: Sodium Chloride (Sodium Chloride 0.65% Na Soln 45 Ml ([facility])) 1 - 2 sprays NA PRN PRN PRN Reason: Nasal Dryness/Congestion Stop: 11/16/20 13:21 Sucralfate (Sucralfate 1 Gm Tab) 1 gm PO BID [facility] Stop: 11/16/20 20:59 Last Admin: 10/18/20 10:09 Dose: 1 gm Documented by: Topiramate (Topiramate 25 Mg Tab) 25 mg PO BID [facility] Stop: 11/16/20 20:59 Last Admin: 10/18/20 10:10 Dose: 25 mg Documented by: Tramadol HCl (Tramadol Hcl 50 Mg Tablet) 50 mg PO Q8 PRN PRN Reason: Pain Stop: 11/16/20 12:20 Last Admin: 10/17/20 20:44 Dose: 50 mg Documented by: Mental Health & Subst Abuse Tx Therapist Name of Therapist: None - stopped seeing therapist 1.5 months ago Eap Counselor Name of Eap Counselor: Intake for BCM at [facility] yesterday Post Discharge Appointments Primary Care Physician Name Of Family Doctor: Dr. Rios
[2020-10-18] MEDS: LORazepam 0.5 MG TAB PO PRN ×2 (13:40→20:59)
[2020-10-18] MEDS: FAMOTIDINE 20 MG TAB PO SCH (20:52)
[2020-10-19] MEDS: LORazepam 0.5 MG TAB PO PRN ×2 (04:34→08:29)
[2020-10-19] MEDS: ASCORBIC ACID 500 MG TAB PO SCH (08:09)
[2020-10-19] MEDS: CeleBREX 200 MG CAP PO SCH (08:09)
[2020-10-19] MEDS: FLUTICASONE PROPIONATE NA SPR 16 GM BTL SCH (08:10)
[2020-10-19] MEDS: CETIRIZINE HCL 10 MG TABLET PO SCH (08:10)
[2020-10-19] MEDS: cloNIDine HCL 0.1 MG TAB PO SCH (08:10)
[2020-10-19] MEDS: MULTIVITAMIN TAB PO SCH (08:12)
[2020-10-19] MEDS: PREGABALIN 150 MG CAP PO SCH (08:12)
[2020-10-19] MEDS: METHOCARBAMOL 500 MG TABLET PO SCH (08:12)
[2020-10-19] MEDS: PANTOprazole 40 MG TAB PO SCH (08:12)
[2020-10-19] MEDS: TOPIRAMATE 25 MG TAB PO SCH (08:13)
[2020-10-19] MEDS: PROPRANOLOL HCL 20 MG TAB PO SCH (08:13)
[2020-10-19] MEDS: SUCRALFATE 1 GM TAB PO SCH (08:13)
[2020-10-19] MEDS: NICOTINE 21 MG/24 HR TDSY TD SCH (09:04)
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
== END 2020-10-19 10:30 | disposition home or self-care (01) | DRG 885 ==
LOC: ED 19:25 → 3S 10-17 04:55